=== PATIENT | male | born 1935 | race Caucasian/White ===

== ENCOUNTER 2016-06-29 16:28 | Inpatient (IN) ==
--- NOTE | 2016-06-29 17:09 | Diag Imaging Result Doc PS360 ---
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 There are calcified granulomata in the mid lung field laterally on the right. The heart size and primary vascularity are within normal limits. IMPRESSION: COPD. Electronically signed by Chris Fuchs 06/29/2016 5:07 PM
[2016-06-29] MEDS ORDERED: GLUCAGON SUBQ ONE (17:17)
[2016-06-29] MEDS ORDERED: D5 NS 1,000 ML IV ONE (17:35)
--- NOTE | 2016-06-29 17:39 | PROVIDER DOCUMENTATION ---
This chart was entered by Radha Brown, acting as scribe for Wang Burns MD. HPI-General Adult - General Chief Complaint: Foreign Body/Throat Stated Complaint: CP, THROAT PAIN Time Seen by Provider: 06/29/16 17:20 Source: patient Allergies/Adverse Reactions: Patient Allergies Allergy/AdvReac Type Severity Reaction Status Date / Time Penicillins Allergy Unknown Verified 06/29/16 16:41 - History of Present Illness -Gen Adult Nature of Presenting Problems: pt is a 81 year old male present to the ER with a cc of middle area chest pain after eating a piece of meat that feeels like it is not going down. pt states he feels like he has gas in his chest. Pt has had an EGD done and esophagus stretched before. Family at bedside also providing hx of pt. Family states that every time he eats or tires to swallow something he vomits it right back up. Denies DM, [place], [place], [place]. Location of Pain/Injury: reports: chest Pain Radiation: reports: no radiation Quality of Pain: reports: indigestion Severity: reports: mild Onset/Duration: reports: 24 hours ago Timing: reports: still present Context/Activities at Onset: reports: none Modifying Factors: improves with: nothing Associated Symptoms: reports: denies symptoms Similar Symptoms Previously?: Yes Recently seen or treated by another doctor?: Yes Review of Systems - Adult - REVIEW OF SYSTEMS - ADULT Constitutional: denies: chills, fever, fatique Eyes: denies: discharge, dry eyes, decreased vision Ears, Nose, Mouth & Throat: denies: ear discharge, ear pain, tinnitus Cardiovascular: reports: chest pain Respiratory: reports: no symptoms reported Gastrointestinal: reports: nausea, vomiting, other Genitourinary: denies: dysuria, discharge, frequency Musculoskeletal: denies: bone pain, back pain, frequent leg cramps, joint pain Integumentary: reports: no symptoms reported Neurological: reports: no symptoms reported Psychiatric: reports: no symptoms reported Endocrine: reports: no symptoms reported Hematologic/Lymphatic: reports: no symptoms reported Allergic/Immunologic: reports: no symptoms reported All Other Systems: Reviewed and Negative Past History - Adult - PAST MEDICAL HISTORY-ADULT Review of Records: reports: Old Records Reviewed, Nursing Assessment Review - IMMUNIZATION STATUS Childhood Immunizations: See Nurse Assessment Flu Vaccine: See Nurse Assessment Physical Exam-General - PHYSICAL EXAM-ADULT Initial Vital Signs Reviewed: Yes - CONSTITUTIONAL General Appearance: appears well, alert, no apparent distress - EYES Eyes: PERRL/EOMI, pink conjunctivae - HEAD, EARS, NOSE, MOUTH & THROAT HENMT: moist mucous membranes, normal ENT inspection, TMs normal, pharynx normal - NECK Neck: non-tender, full range of motion - RESPIRATORY Respiratory: chest non-tender, lungs clear, normal breath sounds - CARDIOVASCULAR Cardiovascular: normal peripheral pulses, regular rate, rhythm - GASTROINTESTINAL (ABDOMEN) Abdominal Exam: normal bowel sounds, non tender, soft - MUSCULOSKELETAL Extremity: normal range of motion, non-tender, normal gait, normal inspection, no pedal edema, normal capillary refill - SKIN Integumentary: normal color, normal turgor, warm/dry - NEUROLOGIC Neurologic: grossly normal, no motor/sensory deficits - PSYCHIATRIC Psych/Mental Status: normal mood/affect, normal thought content, normal thought process, oriented x 3 Progress - PLAN OF CARE/RESULTS Progress/Plan/Lab Results: Vital Signs - 8 hr 06/29/16 16:38 Temperature 98.0 F Pulse Rate 63 Respiratory Rate 18 Blood Pressure 132/26 O2 Sat by Pulse Oximetry 98 Orders Category Date Time Status CHEST-2 VIEWS [RAD] Stat Exams 06/29/16 16:41 Completed Glucagon Med 06/29/16 17:17 Discontinued 1 mg SUBQ NOW ONE - CONSULTS/PCP/HOSPITALIST Notification #1 *Consult/PCP/Hospitalist*: Admit to Dr. Mccallum for EGD tomorrow Time Discussed: 17:38 Consult Disposition: Admit Departure - Departure Time of Disposition Decision: 17:38 DIAGNOSIS: FB GI (foreign body in gastrointestinal tract) Qualifiers: Encounter type: initial encounter Qualified Code(s): T18.9XXA - Foreign body of alimentary tract, part unspecified, initial encounter Disposition: ADMITTED INPATIENT 09 Certified Medical Emergency: Emergent Condition: Stable Referrals and Follow-Ups: Tyler White [Primary Care Provider] - - Critical Care Note This patient required my direct & personal management of CC.: No This chart was documented by the indicated scribe, (Radha Brown) and accurately reflects the services I performed and decisions made by me, Wang Burns MD, as attested by the provider's signature.
[2016-06-29] MEDS ORDERED: STERILE WATER INJ. ONE (18:26)
[2016-06-29 18:50] LABS: MANUAL DIFF NEEDED? NO
[2016-06-29 18:52] LABS: BASO% 0.1 % (0.0-0.8); EOS# 0.11 X1000 (0.0-0.7); EOS% 1.5 % (0.0-10.0); HEMATOCRIT 43.5 % (42.0-52.0); HEMOGLOBIN 14.8 g/dL (14.0-18.0); IMM GRAN# 0.03 X1000 (0.0-0.04); IMM GRAN% 0.4 % (0.0-0.5); LYMPH% 16.6 % (20.5-51.1); MCH 27.8 PG (27-31); MCV 81.8 FL (81-99); MONO# 0.61 X1000 (0.11-0.59); MONO% 8.4 % (1.7-9.3); MPV 9.2 FL (7.4-10.4); PLT 190 X1000 (130-400); RBC 5.32 XMIL (4.7-6.1)
[2016-06-29 19:01] LABS: AGAP 13; ALBUMIN 4.4 g/dL (3.5-5.0); ALKALINE PHOSPHATASE 87 U/L (32-122); AMYLASE 74 U/L (20-200); BUN 10 mg/dL (8-22); CALCIUM 9.3 mg/dL (8.8-10.2); CHLORIDE 104 mmol/L (98-107); COSMO 282; GOT 15 U/L (10-34); GPT 9 U/L (10-44); LIPASE 20 U/L (13-60); POTASSIUM 4.1 mmol/L (3.5-5.1); SODIUM 142 mmol/L (136-145); TCO2 25 mmol/L (25-35); TOTAL BILIRUBIN 1.25 mg/dL (0.20-1.00); TOTAL PROTEIN 7.7 g/dL (6.3-8.3)
[2016-06-29 19:19] VITALS: BP 182/69
[2016-06-29] MEDS ORDERED: ZOFRAN IV PRN (20:14)
[2016-06-29] MEDS ORDERED: SODIUM CHLORIDE 0.9% INJ SCH (20:15)
[2016-06-29] MEDS ORDERED: PROTONIX IV SCH (20:15)
[2016-06-29] MEDS ORDERED: NS 1,000 ML IV SCH (20:18)
[2016-06-29] MEDS ORDERED: TYLENOL PR PRN (20:22)
[2016-06-29] MEDS ORDERED: MORPHINE IV PRN (20:25)
--- NOTE | 2016-06-29 21:26 | HISTORY AND PHYSICAL ---
PRIMARY CARE PROVIDER: Dr. White. TIME: 1944 CHIEF COMPLAINT: Difficulty swallowing with possible esophageal foreign body. HISTORY OF PRESENT ILLNESS: Mr. Chatterjee is a 81-year-old male who has a past medical history of hypertension and previous esophageal strictures. He reports that he has previously had 3-4 procedures for esophageal stretching done in the past with the last approximately 3-4 months ago. He states that yesterday June 28 at 5 p.m. that he was eating a piece of steak for his birthday and took the 1st bite and felt it get stuck stating that he could not swallow it down. Since then the patient has been unable to hold any liquids down at all. He is also reporting some discomfort in the center of his chest in the epigastric area due to this as well. He denies any difficulty breathing. He also denies any choking on his vomitus since then. The patient presented to the ER at 1630 today for his symptoms. He was given 1 mg subcu of glucagon in the ER though this was unsuccessful. The ER doctor did consult Dr. Mccallum with gastroenterology and he is aware of the patient. The patient will be admitted for a GI foreign body removal. The patient also reports that a few months ago that he was placed on blood pressure medicine though states that he has not taken this at all and he does not remember the name of the medication that he was prescribed. REVIEW OF SYSTEMS: A 12 point review of systems was conducted with the patient and all were negative except for pertinent positives mentioned above HPI. PAST MEDICAL HISTORY: 1. Hypertension. 2. Esophageal strictures. 3. Gastroesophageal reflux disease. PAST SURGICAL HISTORY: 1. Right shoulder surgery. 2. Approximately 3-4 previous procedures for esophageal stretching. 3. Cardiac ablation for irregular heartbeat. SOCIAL HISTORY: The patient is , he currently lives at home with his . He retired from [employer]. He denies any previous history of alcohol or illicit drug use though does report that he is a former smoker. He smoked 1 pack of cigarettes per day for approximately 30 years ago and has been quit for 20 years now. FAMILY HISTORY: He reports that his mother secondary to COPD disease. He reports his father from a myocardial infarction. He has 2 brothers who secondary to lung cancer and he does have 1 other sibling who is living who is otherwise healthy. ALLERGIES: Patient reports allergies to penicillin. HOME MEDICATIONS: 1. The patient reports he takes an unknown sleeping pill at night daily. 2. He also reports that he takes BuSpar for anxiety though does not know the dosage. 3. Nexium 40 mg p.o. daily. DIAGNOSTIC DATA: White blood cell count 7.23, hemoglobin 14.8, hematocrit 43.5 , platelet count is 190,000. Sodium 142, potassium 4.1, chloride 104, bicarb 25, BUN 10, creatinine 1.0, GFR greater than 60, glucose 102, calcium 9.3, total bilirubin is 1.25, AST is 15, ALT 9, alkaline phosphatase 87. Troponin less than 0.01, amylase is 74, lipase 20. Patient's 2-view chest x-ray did show evidence of COPD disease, this is per radiology. We are awaiting a EKG to be performed. PHYSICAL EXAMINATION: VITAL SIGNS: Temperature 98.6 degrees, heart rate 63, respirations 18, blood pressure 182/69, oxygen saturation 96% room air. GENERAL: Mr. Chatterjee is a very pleasant 81-year-old male who was resting comfortably in the inpatient bed. He was in no acute distress. He was awake, alert, able to answer all questions appropriately. HEENT: Head is atraumatic, normocephalic. Pupils are equal, round, reactive to light. Oral mucosa moist. Oropharynx clear. NECK: Supple. Trachea midline. No carotid bruits noted on auscultation bilaterally. CARDIOVASCULAR: Patient has normal S1, S2. No murmurs, gallops, rubs appreciated with a regular rate and rhythm. PULMONARY: Patient has symmetrical chest expansion bilaterally. Lung sounds are clear to auscultation in bilateral full davis. ABDOMEN: Soft, nondistended though the patient does have slightly protuberant abdomen noted. No tenderness noted upon palpation. Bowel sounds were present all 4 quadrants were normoactive. EXTREMITIES: No cyanosis, clubbing, or edema noted. Pulse, motor and sensory were intact in all extremities. Radial and pedal pulses were 3+ bilaterally. INTEGUMENT: The patient's skin is pink, warm, dry and intact. NEUROLOGICAL: Patient is alert, oriented x4. Cranial nerves 2-12 are grossly intact. IMPRESSION AND PLAN: 1. Esophageal foreign body. For this Dr. Mccallum has been consulted. He does plan to take the patient for EGD for food impaction this evening. The patient will be NPO. We will implement aspiration precautions and await evaluation and further recommendations from Dr. Mccallum. 2. Hypertension. As previously mentioned the patient states that he has been prescribed medicine for this though does not take it. He is also unsure of what the prescribed medication was. We will monitor his blood pressure closely and implement IV antihypertensive medications as needed since he is NPO at this time and will switch this to oral medications once patient is able to tolerate oral medications and liquids. 3. Gastroesophageal reflux disease. We have placed the patient on Protonix 40 mg IV q.24 hours. 4. Nausea. We have ordered Zofran as needed. The patient will be placed on the medical floor telemetry. He will have vital signs q.6 hours. Will do strict intake and output. DVT prophylaxis provided with SCDs. Will do gentle fluid resuscitation with normal saline at 100 mL/h and have also placed a p.r.n. order for morphine for the patient's reported discomfort he is having from his esophageal foreign body. Further orders, recommendations pending hospital course, diagnostic studies and physician evaluation. Dictated by ENRICO Rodriguez for Maximo Dunn MD Pt seen and examined by me; plan discussed with PROJECTION CAMERA OPERATOR cc: Maximo Dunn MD [facility]ITAL[facility]
[2016-06-29] MEDS ORDERED: DIPRIVAN 1% ONE (21:50)
--- NOTE | 2016-06-29 22:03 | OPERATIVE NOTE ---
PROCEDURE DATE: 06/29/2016 PROCEDURE: 1. EGD. 2. Foreign body removal. PREOPERATIVE DIAGNOSIS: Acute food impaction. POSTOPERATIVE DIAGNOSES: 1. Acute food impaction. Foreign body removed. 2. Esophageal ring. 3. Esophagitis and hiatal hernia. HISTORY: This 81-year-old gentleman admitted to hospital after he had swallowed meat yesterday which was lodged in esophagus, he has not been able to swallow since then. He has had similar episodes prior as well. He had EGD and foreign body removal by Dr. Earl in [place] early. EGD was done for foreign body removal. PROCEDURE: Informed consent obtained from the patient. Procedure risks, benefits, alternative explained layman's terms. He understood. All his pertinent questions answered. Patient was brought to the endoscopy unit and premedicated as per Anesthesia. After adequate sedation while he was lying left lateral position the gastroscope was introduced in the posterior pharynx and advanced under direct vision into esophagus. Esophagus in the upper middle parts normal. Distal esophagus showed evidence of meat impacted in the esophagus. The liquid portion was suctioned out successfully. Small portion of the meat was removed without difficulty and then major chunk was pushed into the stomach by gentle pressure. After removal of the meat into the stomach I did see esophageal ring which is fairly tight. The ring was about 13 mm in diameter. Scope was easily passed through the esophagus into the stomach. I did notice a significant inflammation at the ring which bled to touch. The ring was at about 38 cm from the incisor. There was 2 cm hiatal hernia noted. No varices noted. Scope was then passed through stomach, stomach was examined both straight and retroflexed view which confirmed the presence of the hiatal hernia and there was no ulcer, AVM or masses seen. Scope then passed through the normal pylorus into the duodenal bulb and the 2nd part duodenum both appeared normal. Scope was then removed. Patient tolerated procedure, no complication noted. Patient was then transferred to the recovery area in a stable condition. IMPRESSION: 1. Acute food impaction. 2. Foreign body removed. 3. Esophageal ring. 4. Esophagitis. 5. Otherwise normal EGD. RECOMMENDATION: Advised to continue proton pump inhibitor, Nexium 40 mg every day. Encouraged him to avoid NSAID if possible and follow up with me in the office. He will need EGD and dilation of the ring at later date. cc: Nirmal Mccallum MD
[2016-07-01] MEDS ORDERED: XYLOCAINE-MPF 2% ONE (09:09)
[2016-07-01] MEDS ORDERED: LR 1,000 ML ONE (09:09)
== END 2016-06-29 22:55 | disposition home or self-care (01) ==
LOC: ED 16:28 → 4N 17:59 → SUATTDRO 17:59
PROVIDERS: ATTEND Internal Medicine